=== PATIENT | male | born 1970 | race Caucasian/White ===

== ENCOUNTER 2018-10-18 11:39 | Emergency (ER) | payer BC ==
[2018-10-18] MEDS ORDERED: Diphtheria,Pertussis(Acell),Tetanus Vaccine 0.5 ML Syringe IM ONE (11:52)
--- NOTE | 2018-10-19 02:29 | EDM.PDOC ---
ED HPI GENERAL MEDICAL PROBLEM - General Chief Complaint: Laceration Stated Complaint: CUT RIGHT WRIST Time Seen by Provider: 10/18/18 11:41 Source of Information: Reports: Patient History Limitations: Reports: No Limitations - History of Present Illness INITIAL COMMENTS - FREE TEXT/NARRATIVE: PtTawny sustained a laceration to the dorsum of his R wrist while working on a baseboard heater. He states that he is due for tetanus. Denies any issues with ROM to the wrist. No numbness/tingling to the hand or fingers. He states that this happened just prior to arriving to the ER. He states that the bleeding was minimal. Onset Date: 10/18/18 Location: Reports: Upper Extremity, Right Quality: Reports: Sharp Right Wrist Pain Score (Numeric/FACES): 3 - Related Data Allergies Allergy/AdvReac Type Severity Reaction Status Date / Time No Known Allergies Allergy Verified 10/18/18 11:52 Past Medical History Psychiatric History: Reports: ADHD, Depression Social & Family History - Tobacco Use Smoking Status *Q: Unknown Ever Smoked - Recreational Drug Use Recreational Drug Use: No ED ROS GENERAL - Review of Systems Review Of Systems: See Below Constitutional: Reports: No Symptoms HEENT: Reports: No Symptoms Respiratory: Reports: No Symptoms Cardiovascular: Reports: No Symptoms Endocrine: Reports: No Symptoms GI/Abdominal: Reports: No Symptoms : Reports: No Symptoms Musculoskeletal: Reports: Other (posterior wrist pain) Skin: Reports: No Symptoms Neurological: Reports: No Symptoms Psychiatric: Reports: No Symptoms Hematologic/Lymphatic: Reports: No Symptoms Immunologic: Reports: No Symptoms ED EXAM, GENERAL - Physical Exam Exam: See Below Exam Limited By: No Limitations General Appearance: Alert, WD/WN, No Apparent Distress Extremities: Other (2 cm laceration to R dorsal wrist. It is quite superficial with no trauma to the underlying structures of the wrist.) Neurological: Alert, Oriented, CN II-XII Intact, Normal Cognition, Normal Gait, Normal Reflexes, No Motor/Sensory Deficits Psychiatric: Normal Affect, Normal Mood Skin Exam: Warm, Dry, Intact, Normal Color, No Rash ED GENERAL MEDICAL PROCEDURES - Laceration/Wound Repair Right Dorsal Wrist Lac/wound length in cm: 2 Appearance: Superficial Distal NVT: Neuro & Vascular Intact, No Tendon Injury Skin Prep: Chlorhexidine (Hibiciens), Saline Exploration/Debridement/Repair: Wound Explored, Explored to Base Closed with: Dermabond Course - Vital Signs Last Recorded V/S: Last Vital Signs Temp 36.5 C 10/18/18 11:40 Pulse 84 10/18/18 11:40 Resp 16 10/18/18 11:40 BP 116/80 10/18/18 11:40 Pulse Ox 97 10/18/18 11:40 - Orders/Labs/Meds Orders: Active Orders 24 hr Category Date Time Status Vaccines to be Administered [RC] PER UNIT ROUTINE Care 10/18/18 11:53 Active Meds: Medications Discontinued Medications Generic Name Dose Route Start Last Admin Trade Name Freq PRN Reason Stop Dose Admin Diphtheria/Tetanus/Acell Pertussis 0.5 ml 10/18/18 11:52 10/18/18 12:00 Adacel IM 10/18/18 11:53 0.5 ml .ONCE ONE Administration Departure - Departure Time of Disposition: 12:05 Disposition: Home, Self-Care 01 Clinical Impression: Laceration - Discharge Information Instructions: Laceration Care, Adult Referrals: PCP,None [Primary Care Provider] - Forms: ED Department Discharge Additional Instructions: Keep dry for 24 hours. Return if redness, swelling, or discharge from the area. Minimize movement to wrist as much as possible to assist with healing. - My Orders Last 24 Hours: My Active Orders 10/18/18 11:53 Vaccines to be Administered [RC] PER UNIT ROUTINE - Assessment/Plan Last 24 Hours: My Active Orders 10/18/18 11:53 Vaccines to be Administered [RC] PER UNIT ROUTINE Plan: Keep dry for 24 hours. Return if redness, swelling, or discharge from the area. Minimize movement to wrist as much as possible to assist with healing.
== END 2018-10-18 12:05 | disposition home or self-care (01) ==
LOC: VM.ED 11:39
DX: S61.511A Laceration without foreign body of right wrist, initial encounter (principal); Z23 Encounter for immunization; X19.XXXA Contact with other heat and hot substances, initial encounter
CPT/HCPCS: 12001; 90471; 90715; 99282